=== PATIENT | female | born 2000 | race Caucasian/White ===

== ENCOUNTER → 2022-08-09 | Outpatient (CLI) | payer BC | LOC: MHCPAIN 11:23 | DX: M54.50 Low back pain, unspecified (principal); M51.16 Intervertebral disc disorders with radiculopathy, lumbar region; M35.7 Hypermobility syndrome | CPT/HCPCS: G0463 ==

== ENCOUNTER → 2022-08-23 | Outpatient (CLI) | payer BC | LOC: COL.RAD 12:30 | DX: M54.50 Low back pain, unspecified (principal) ==

== ENCOUNTER → 2023-03-22 | Outpatient (CLI) | payer BC ==
[~2023-03-22] MED LIST: ADDERALL XR30 MG PO; FEOSOL45 MG; LYRICA 25MG CAP25 MG PO; MASON NATURAL2000 IU PO; PAMELOR50 MG PO; SINGULAIR 110 MG/TAB PO; YAZ 28 3 MG-0.01 TAB PO
== END ==
LOC: MHCPAIN 13:56
DX: M54.2 Cervicalgia (principal); M35.7 Hypermobility syndrome; M54.50 Low back pain, unspecified; R51.9 Headache, unspecified
CPT/HCPCS: G0463

== ENCOUNTER → 2023-05-10 | Outpatient (CLI) | payer BC | LOC: MHCPAIN 13:27 | DX: M54.50 Low back pain, unspecified (principal); R51.9 Headache, unspecified; M54.2 Cervicalgia; M35.7 Hypermobility syndrome; M79.18 Myalgia, other site | CPT/HCPCS: G0463 ==